=== PATIENT | male | born 1970 | race Two or more races ===

== ENCOUNTER 2020-06-26 11:12 | Emergency (ER) | payer OTHER ==
[~2020-06-26] VITALS: Ht 177.8 cm; Wt 88.5 kg
[~2020-06-26 11:12] MED LIST: ATENOLOL25 MG
[2020-06-26] MEDS ORDERED: ATORVASTATIN CA20 MG PO (11:55)
[2020-06-26] MEDS ORDERED: LISINOPRIL5 MG PO (11:55)
[2020-06-26] MEDS ORDERED: JANUMET 50-5001 EACH PO (11:56)
[2020-06-26] MEDS ORDERED: HYDROCHLOROTH12.5 MG PO (11:56)
== END 2020-06-26 12:55 | disposition home or self-care (01) ==
LOC: ER 11:12
DX: S33.5XXA Sprain of ligaments of lumbar spine, initial encounter (principal); X50.0XXA Overexertion from strenuous movement or load, initial encounter; Y93.89 Activity, other specified; Y92.098 Other place in other non-institutional residence as the place of occurrence of the external cause; Y99.8 Other external cause status

== ENCOUNTER 2020-06-28 10:40 | Outpatient (CLI) | payer OTHER ==
[~2020-06-28 10:40] MED LIST changes: +ATORVASTATIN CA20 MG PO; +HYDROCHLOROTH12.5 MG PO; +JANUMET 50-5001 EACH PO; +LISINOPRIL5 MG PO
== END 2020-06-28 10:51 | disposition home or self-care (01) ==
LOC: MRI 10:40
PROVIDERS: ATTEND Physical Medicine & Rehabilitation
DX: M54.5 Low back pain (principal); Q61.02 Congenital multiple renal cysts; M54.11 Radiculopathy, occipito-atlanto-axial region
CPT/HCPCS: 72148